=== PATIENT | female | born 1975 | race Caucasian/White ===

== ENCOUNTER 2016-11-21 17:36 | Emergency (ER) | payer MEDICAID ==
[~2016-11-21] VITALS: Ht 152.4 cm; Wt 56.0 kg
[2016-11-21 20:15] VITALS: BP 118/72
== END 2016-11-21 20:15 | disposition home or self-care (01) ==
LOC: ED 17:36
DX: G89.29 Other chronic pain (principal); M54.2 Cervicalgia; M54.9 Dorsalgia, unspecified; R20.2 Paresthesia of skin; Z79.1 Long term (current) use of non-steroidal anti-inflammatories (NSAID); Z98.890 Other specified postprocedural states
CPT/HCPCS: J3010

== ENCOUNTER 2018-03-31 15:11 | Emergency (ER) | payer MEDICAID ==
[~2018-03-31] VITALS: Ht 162.6 cm; Wt 54.9 kg
[2018-03-31 15:17] VITALS: Ht 162.6 cm; Wt 54.9 kg
[2018-03-31 19:21] VITALS: BP 90/58
== END 2018-03-31 19:21 | disposition home or self-care (01) ==
LOC: ED 15:11
DX: M54.17 Radiculopathy, lumbosacral region (principal); M54.12 Radiculopathy, cervical region
CPT/HCPCS: J1885; Q0162